=== PATIENT | female | born 1955 | race Two or more races ===

== ENCOUNTER 2018-08-17 08:39 | Outpatient (CLI) | payer OTHER ==
[~2018-08-17 08:39] MED LIST: DIOVAN160 M1 PO; KEPPRA500 MG PO; PLAVIX75 MG PO; TOPAMAX25 M1 PO; VERAPAMIL HCL40 MG PO
[2018-08-20] MEDS ORDERED: SINGULAIR 10MG10 MG PO (10:16)
[2018-08-20] MEDS ORDERED: AVAPRO150 MG PO (10:16)
[2018-08-20] MEDS ORDERED: AMANTADINE PO (10:16)
[2018-08-20] MEDS ORDERED: AMITRIPTYLINE H50 MG PO (10:17)
[2018-08-20] MEDS ORDERED: DICLOFENAC SODIU5 ML OP (10:17)
[2018-08-20] MEDS ORDERED: PREVACID30 M1 PO (10:19)
[2018-08-20] MEDS ORDERED: HYDROCHLOROTHIA25 MG PO (10:19)
== END 2018-08-17 10:10 | disposition home or self-care (01) ==
LOC: RAD 501 08:39
DX: Z01.810 Encounter for preprocedural cardiovascular examination (principal)

== ENCOUNTER 2018-08-25 10:41 | Day surgery (SDC) | payer OTHER ==
[~2018-08-25 10:41] MED LIST changes: +AMANTADINE PO; +AMITRIPTYLINE H50 MG PO; +AVAPRO150 MG PO; +DICLOFENAC SODIU5 ML OP; +HYDROCHLOROTHIA25 MG PO; +PREVACID30 M1 PO; +SINGULAIR 10MG10 MG PO
== END 2018-08-25 19:00 | disposition home or self-care (01) ==
LOC: CIR.AMB 10:41
DX: S53.32XA Traumatic rupture of left ulnar collateral ligament, initial encounter (principal)

== ENCOUNTER 2018-08-30 15:14 | Emergency (ER) | payer OTHER ==
[~2018-08-30] VITALS: Ht 160 cm; Wt 63.5 kg
== END 2018-08-30 21:39 | disposition home or self-care (01) ==
LOC: ER 15:14
DX: G89.18 Other acute postprocedural pain (principal); M25.532 Pain in left wrist; L29.8 Other pruritus